=== PATIENT | male | born 1980 | race Hispanic/Latino ===

== ENCOUNTER 2019-01-01 11:21 | Outpatient (CLI) | payer MEDICAID ==
[2019-01-01 12:40] LABS: Hematocrit 44.4 % (35.5-45.6); Hemoglobin 15.1 gm/dl (11.8-15.2); Mean Corpuscular HGB Conc 34 % (32-34); Mean Corpuscular Volume 83 fl (84-94); Platelet Count 216 K/mm3 (140-440); Red Blood Count 5.37 M/mm3 (3.65-5.03); Red Cell Distribution Width 13.7 % (13.2-15.2)
[2019-01-01 13:00] LABS: Alanine Aminotransferase 29 units/L (7-56); Albumin 4.8 g/dL (3.9-5); BUN/Creatinine Ratio 13; Blood Urea Nitrogen 10 mg/dL (9-20); Calcium 9.4 mg/dL (8.4-10.2); Hemolysis Index 0; LDL Cholesterol,Direct 89 mg/dL (50-130)
[2019-01-01 13:31] LABS: Chol/HDL Ratio 3.22 %; HDL Cholesterol 40 mg/dL (40-59)
[2019-01-04 14:47] LABS: Vitamin D, 25-OH, D2 <4 ng/mL
== END 2019-01-01 11:22 | disposition home or self-care (01) ==
LOC: LAB 11:21
PROVIDERS: ATTEND Internal Medicine
DX: Z13.220 Encounter for screening for lipoid disorders (principal); Z13.1 Encounter for screening for diabetes mellitus; Z13.21 Encounter for screening for nutritional disorder; E66.09 Other obesity due to excess calories
CPT/HCPCS: 36415; 80053; 80061; 82306; 82607; 83036; 84443; 85027